=== PATIENT | male | born 1950 | race Caucasian/White ===

== ENCOUNTER → 2017-07-16 | Outpatient (CLI) | payer OTHER, MEDICARE | LOC: FIMAGING 07:49 | PROVIDERS: ATTEND Internal Medicine | DX: S73.192A Other sprain of left hip, initial encounter (principal); M75.102 Unspecified rotator cuff tear or rupture of left shoulder, not specified as traumatic; M75.52 Bursitis of left shoulder; M19.012 Primary osteoarthritis, left shoulder; M75.22 Bicipital tendinitis, left shoulder; M85.412 Solitary bone cyst, left shoulder ==

== ENCOUNTER → 2018-02-24 | Outpatient (CLI) | payer OTHER, MEDICARE | LOC: BHFA 15:00 | PROVIDERS: ATTEND Internal Medicine Cardiovascular Disease | DX: I49.9 Cardiac arrhythmia, unspecified (principal) ==

== ENCOUNTER → 2018-03-16 | Outpatient (CLI) | payer OTHER, MEDICARE | LOC: BHFA 13:30 | PROVIDERS: ATTEND Internal Medicine Cardiovascular Disease | DX: I47.1 Supraventricular tachycardia (principal) ==

== ENCOUNTER → 2018-04-07 | Outpatient (CLI) | payer OTHER, MEDICARE | LOC: BHFA 14:45 | PROVIDERS: ATTEND Internal Medicine Cardiovascular Disease | DX: I47.1 Supraventricular tachycardia (principal) ==

== ENCOUNTER → 2018-04-08 | Outpatient (CLI) | payer OTHER, MEDICARE | LOC: BHFA 09:00 | PROVIDERS: ATTEND Internal Medicine Cardiovascular Disease | DX: I47.1 Supraventricular tachycardia (principal) ==

== ENCOUNTER 2018-05-16 11:04 | Observation (INO) | payer OTHER, MEDICARE ==
[2018-05-16] MEDS ORDERED: NS 1,000 ML IV ONE (11:07)
--- NOTE | 2018-05-16 11:16 | PDGENHP ---
History & Physical Chief Complaint: palpitations History of Present Illness: palpitations Relevant Physical Exam: [id number] Cardiorespiratory Assessment: eps for AT, poss ablation
--- NOTE | 2018-05-16 11:39 | PDPROPOC ---
Sedation Plan of Care Sedation Plan of Care: vital signs stable, mental status noted, patient educated of risks, benefits, alternatives, patient can tolerate sedation ASA Classification: ASA 1 Planned drugs: fentanyl, midazolam Mallampati Score: Class 1 Mallampati Reference Image: Patient passed 3-3-2 rule?: Yes
[2018-05-16 11:41] LABS: PLATELET COUNT 164 10^3/uL (150-400)
[2018-05-16 11:49] LABS: INR 1.01 (0.83-1.16); PROTIME(PATIENT) 13.5 SEC (12.0-15.0)
[2018-05-16] MEDS ORDERED: BUPIVACAINE 0.75% 10 ML SDV ONE (14:06)
[2018-05-16] MEDS ORDERED: LIDOCAINE 1% 300 MG/30 ML SDV ONE (14:06)
[2018-05-16] MEDS ORDERED: ISOPROTERENOL HCL/D5W 0.2 MG/50 ML BAG IV ONE (14:06)
[2018-05-16] MEDS ORDERED: HEPARIN 10,000 UNIT/10 ML MDV (1,000 UNIT/ML) ONE (14:06)
[2018-05-16] MEDS ORDERED: MIDAZOLAM 2 MG/2 ML VIAL ONE ×4 (15:53→16:32)
[2018-05-16] MEDS ORDERED: fentaNYL 100 MCG/2 ML INJ ONE (15:54)
--- NOTE | 2018-05-16 16:16 | CPEKG ---
Test Reason : OPEN Blood Pressure : / mmHG Vent. Rate : 060 BPM Atrial Rate : 060 BPM P-R Int : 110 ms QRS Dur : 069 ms QT Int : 393 ms P-R-T Axes : 028 032 039 degrees QTc Int : 393 ms Sinus rhythm Confirmed by Jaylon Greenberg ([id number]) on 05/16/2018 4:15:35 PM Referred By: Confirmed By:Jaylon Greenberg
[2018-05-16] MEDS ORDERED: PHENYLEPHRINE HCL 100 MCG/ML SYR ONE ×2 (16:20→17:06)
[2018-05-16] MEDS ORDERED: APIXABAN 5 MG TAB ONE (17:32)
[2018-05-16] MEDS: APIXABAN 5 MG TAB PO SCH (17:36)
[2018-05-16] MEDS ORDERED: AMIODARONE A.FIB-LOAD DOSE(ORDER 1/3) PREMIX IV ONE (20:00)
[2018-05-16] MEDS ORDERED: AMIODARONE A.FIB-6HR INFSN (ORDER 2/3) PREMIX IV ONE (20:00)
[2018-05-17] MEDS ORDERED: AMIODARONE A.FIB-18HR INFSN (ORDER 3/3) IV ONE (02:30)
[2018-05-17 03:40] LABS: PLATELET COUNT 150 10^3/uL (150-400)
[2018-05-17 08:02] VITALS: BP 102/82
[2018-05-17] MEDS: APIXABAN 5 MG TAB PO SCH (08:35)
--- NOTE | 2018-05-17 12:46 | EPPROC ---
Electrophysiology Procedure Note: PROCEDURE DATE 05/16/2018 DIAGNOSTIC ELECTROPHYSIOLOGIC STUDY Procedures performed: 1. Fluoroscopy 2. EP evaluation with RA/RV/LA pace/record, with arrhythmia induction 3. EP evaluation with RA/RV pace record, insert/reposition catheter, with arrhythmia induction 4. Programmed stimulation + pacing after IV drug INDICATION: Atrial tachycardia PROCEDURE: Catheters & Anesthesia: The patient arrived in the Electrophysiology Laboratory in the fasting state. The right clavicular region, right groin, & left groin area were prepped & draped in the usual sterile manner. Procedure was done with patient fully awake. Appropriate non-invasive blood pressure, pulse oximetry & end-tidal CO2 monitoring was established. All catheters were placed percutaneously using the modified Seldinger technique , and advanced into position under fluoroscopic guidance. Vascular ultrasound was used for access. One #7 Syrian deflectable octapolar electrode catheter was advanced to the His-bundle position via the left femoral vein. . Meredith catheter was placed in the right atrial appendage. 20 pole catheter was placed in the coronary sinus. Programmed stimulation was performed from the right atrium, right ventricle and coronary sinus (left atrium). Heparin was administered. Program stimulation induced 2 separate nonsustained atrial tachycardias, 5-7 beats, 2 separate occasions. We also induced sustained atrial fibrillation. This persisted for more than 30 min. Patient was sedated using Versed and fentanyl. Cardioversion was performed x2 , there was early recurrence of atrial fibrillation. At this point the procedure was terminated . The catheters were removed. Vascular access sheaths were removed in the EP lab after placing subcutaneous pursestring suture. The patient was transferred to the cardiovascular holding area in stable condition. There were no apparent complications. CONCLUSIONS 1. Normal sinus and AV node function. 2. No evidence of accessory AV pathway presence. 3. Nonsustained atrial tachycardia 4. Sustained atrial fibrillation 5. No apparent complications. RECOMMENDATIONS 1. Short-term anticoagulation with Eliquis 5 mg twice daily given that patient was cardioverted. Continue for 4 weeks. [id number] Score is 1. 2. Extended monitoring for 4 weeks to assess for clinical episodes of atrial fibrillation. Since he was initially evaluated in clinic patient has had several episodes of palpitations lasting for 4-6 hours which by his description are likely atrial fibrillation 3. Patient to be seen in clinic for evaluation for antiarrhythmic therapy versus ablation procedure for atrial fibrillation. Patient Problems: Problems Problem Status Onset Palpitations Acute
--- NOTE | 2018-05-17 16:24 | GDS ---
SUPERVISING PRODUCTION EXPEDITER: Dr. Roger Sandoval. ADMISSION DIAGNOSES: Atrial tachycardia DISCHARGE DIAGNOSES: Atrial fibrillation, paroxysmal HOSPITAL COURSE: The patient presented May 16, 2018, for electrophysiology study in the setting of increased frequency of palpitations with possible atrial tachycardia ablation. Electrophysiology study demonstrated no evidence of atrial tachycardia with sustained atrial fibrillation. Post procedure, the patient remained in atrial fibrillation for the next 12 hours and spontaneously converted to normal sinus rhythm this morning. No prior documented history of atrial fibrillation. He has been started on Eliquis 5 mg twice daily. Laboratory studies this morning are stable. He is appropriate and stable for discharge home today. PHYSICAL EXAM: GENERAL APPEARANCE: No apparent distress. Alert and oriented x4. VITAL SIGNS: Blood pressure is 102/82, heart rate is 86, SpO2 94% on room air, temperature 36.7 degrees Celsius. CARDIAC: Normal S1, S2. No S3, S4, or murmurs. Rhythm is regular. There is no peripheral edema. No cyanosis or pallor. Capillary refill is less than 2 seconds. LUNGS: Clear to auscultation without rales, rhonchi, wheezing, or diminished breath sounds. ABDOMEN: Normoactive bowel sounds times all 4 quadrants. Soft, nondistended, nontender. No guarding or rebound. No masses. EXTREMITIES: No edema. Peripheral pulses are 2+ bilaterally. Bilateral pursestring sutures removed this morning, intact without evidence of hematoma, oozing, redness, swelling or warmth. LABORATORY STUDIES: Drawn this morning. CBC and BMP are stable. DISCHARGE MEDICATIONS: Please see home med reconciliation list. The patient has been started on Eliquis 5 mg twice daily. DISCHARGE INSTRUCTIONS: Post electrophysiology study discharge instructions were reviewed in detail with the patient and his . He will avoid heavy lifting more than 10 pounds for 10 days. He will also avoid submerged bathing until his bilateral groin sites are healed. He will continue Eliquis 5 mg twice daily until we can rule out the possibility of clinical atrial fibrillation outside of the procedural setting. He will have a 4 week extended ECG monitor for further evaluation of his atrial tachycardia versus atrial fibrillation. He will follow up in our clinic after this testing is complete. He will contact our clinic with any new or concerning symptoms in the meantime. More than 30 minutes spent in counseling, coordination of care, and education during discharge for this patient today. /[id number]/MODL MTDD
--- NOTE | 2018-05-17 21:26 | ASDISCHSUM ---
Discharge Information Plan Status:Home with No Needs Medically Cleared to Leave:05/16/2018 Discharge Date:05/16/2018 CM D/C Disposition:Home, Routine, Self-Care ADT D/C Disposition:Home, Routine, Self-Care Projected Discharge Date:05/16/2018 Transportation at D/C:Family Discharge Delay Reason: Follow-Up Date:05/16/2018 Discharge Slot: Final Diagnosis: Placement Information Patient Contact Information Contact Name:RHODA Relationship: Address:[address] City:[place] Alternate Phone: [facility]/Zip Code:[place] [address] Email: Financial Information Financial Class:Medicare Primary Plan Desc:MEDICARE OUTPATIENT Primary Plan Number:[id number] Secondary Plan Desc:MARJORIE/JOHN SUPPLEMENT Secondary Plan Number:[id number] Assessment Information LACE LACE Length of stay for Answers: Less than 1 day current admission Acuity / Level of Answers: No Care: Did the patient have an inpatient admission? # of Emergency department Answers: 0 visits in the last 6 months Date Signed: 05/17/2018 10:27 AM Electronically Signed By:Pau Granado RN Intervention Information
--- NOTE | 2018-05-18 05:51 | CPEKG ---
Test Reason : OPEN Blood Pressure : / mmHG Vent. Rate : 122 BPM Atrial Rate : 120 BPM P-R Int : 164 ms QRS Dur : 070 ms QT Int : 318 ms P-R-T Axes : 000 056 041 degrees QTc Int : 453 ms Atrial fibrillation Confirmed by Jaylon Greenberg ([id number]) on 05/18/2018 5:50:53 AM Referred By: Confirmed By:Jaylon Greenberg
--- NOTE | 2018-05-18 05:56 | CPEKG ---
Test Reason : OPEN Blood Pressure : / mmHG Vent. Rate : 145 BPM Atrial Rate : 150 BPM P-R Int : 133 ms QRS Dur : 074 ms QT Int : 294 ms P-R-T Axes : 094 035 005 degrees QTc Int : 457 ms Atrial fibrillation LVH Confirmed by Jaylon Greenberg ([id number]) on 05/18/2018 5:56:07 AM Referred By: Confirmed By:Jaylon Greenberg
== END 2018-05-17 10:40 | disposition home or self-care (01) ==
LOC: FCATH 11:04 → F2W 18:55
PROVIDERS: ADMIT Internal Medicine Cardiovascular Disease; ATTEND Internal Medicine Cardiovascular Disease
PROC: 5A1213Z Performance of Cardiac Pacing, Intermittent (ICD-10-PCS; principal; 2018-05-16)
PROC: 02HK3MZ Insertion of Cardiac Lead into Right Ventricle, Percutaneous Approach (ICD-10-PCS; principal; 2018-05-16)
PROC: B2161ZZ Fluoroscopy of Right and Left Heart using Low Osmolar Contrast (ICD-10-PCS; principal; 2018-05-16)
PROC: 02H73MZ Insertion of Cardiac Lead into Left Atrium, Percutaneous Approach (ICD-10-PCS; principal; 2018-05-16)
PROC: 02583ZZ Destruction of Conduction Mechanism, Percutaneous Approach (ICD-10-PCS; principal; 2018-05-16)
PROC: 4A023FZ Measurement of Cardiac Rhythm, Percutaneous Approach (ICD-10-PCS; principal; 2018-05-16)
PROC: 02H63MZ Insertion of Cardiac Lead into Right Atrium, Percutaneous Approach (ICD-10-PCS; principal; 2018-05-16)
DX: I48.0 Paroxysmal atrial fibrillation (principal)
CPT/HCPCS: 93005; 93620; 93621; 93623; C1730; C1731; J0282; J1644; J2250; J2370; J3010